=== PATIENT | female | born 1970 | race African-American/Black ===

== ENCOUNTER → 2022-02-28 | Outpatient (CLI) | payer BC ==
[~2022-02-28] MED LIST: IOPAMIDOL 370 MG/ML 100 ML INFUS..BTL INJ ONE
[2022-02-28 11:36] LABS: CREATININE, SERUM 0.98 mg/dL (0.57-1.11)
== END ==
LOC: CT 09:11
PROVIDERS: ATTEND Internal Medicine Gastroenterology
DX: R10.9 Unspecified abdominal pain (principal)
CPT/HCPCS: 36415; 74177; 82565; 84520; Q9967